=== PATIENT | female | born 1995 | race Caucasian/White ===

== ENCOUNTER → 2017-03-30 | Day surgery (SDC) | payer OTHER ==
[2017-03-30] VITALS (9 sets, daily range): BP systolic 97–114; BP diastolic 49–99; PULSE 68–80; RESP 11–22; O2SAT 98–100
[~2017-03-30] VITALS: Ht 172.1 cm; Wt 92.9 kg
[~2017-03-30] MED LIST: ACET325T51 PO; Bupivacaine-MPF 0.5% 30 mL Inj INFILTRATE ONE; CeFAZolin Inj 2 GM in IV Premix 1 EACH IV ONE; CeFAZolin Inj 2 gm / 50mL D5W IV ONE; Dexamethasone 4 mg/mL Inj ONE; EPHEDrine Sulfate 50 mg/mL Inj IVPUSH PRN; FERR-83 PO; HYDROmorphone 1 mg/mL Inj IVPUSH PRN; Labetalol 5 mg/mL 20 mL Inj IV PRN; Lactated Ringer's 1,000 ML IV ONE; Lactated Ringer's 1,000 ML IV SCH; Lactated Ringer's 500 ML IV PRN; MetoCLOpramide 5 mg/mL 2 mL Inj IVPUSH PRN; NAPR220C11 PO; OXYC5TAB72 PO; Ondansetron 2 mg/mL 2 mL Inj IVPUSH PRN; Ondansetron 2 mg/mL 2 mL Inj ONE; PROP20TA5 PO; Phenylephrine 10,000 mCg/mL Inj IVPUSH PRN; Propofol 10,000 mCg/mL 20 mL Inj ONE; QUET100T PO; TRAZ150T72 PO; fentaNYL-PF 50 mCg/mL 2 mL Inj IVPUSH PRN; fentaNYL-PF 50 mCg/mL 2 mL Inj ONE; oxyCODONE-Acetamin 5-325 mg Tablet PO PRN
--- NOTE | 2017-03-30 13:15 | PCM.HPANE ---
Patient Data Date of Service: Mar 30, 2017 Surgeon Admitting Provider: Attending Provider:Edwige Perez MD Primary Care Physician:Sindhu Davenport PA-C Other Provider:Hitesh Chavez Anesthesia Reason for Visit Left Axillary Lymphadenopathy Ht/WT & BMI Height (Feet): 5 Height (Inches): 7.75 Weight (Kilograms): 92.9 Body Mass Index 31.00 Allergies Coded Allergies: fluoxetine (Verified Allergy, Unknown, suicidal ideation, 03/29/17) sertraline (Verified Allergy, Unknown, made her feel "like a zombie", 03/29) citalopram (Verified Adverse Reaction, Unknown, not effective, 03/29/17) Past Anesthesia History Anesthesia History: Denies:: Abnormal Airway, Anesthesia Reactions, Difficult Intubation, Fam Anesthesia Reaction, Fam Malignant Hypertherm, Malignant Hyperthermia Diabetes History Hx Diabetes?: No MRSA MRSA: No Medications Hypertension Medication: No Reported Medications Ferrous Sulfate 325 Mg [id number] Mg PO DAILY 30 Days Ref 0 03/29/17 Naproxen Sodium (Aleve)220 Mg [id number] Mg PO DAILY PRN For Pain 03/16/17 Acetaminophen 325 Mg [id number] Mg PO Q4H PRN For Fever Ref 0 03/16/17 Propranolol HCl 20 Mg [id number] Mg PO BID 90 Days Ref 0 03/16/17 Trazodone 150 Mg [id number] Mg PO HS Ref 0 03/16/17 Quetiapine Fumarate (Seroquel)100 Mg [id number] Mg PO HS Ref 0 03/16/17 History History of ENT Problems?: Yes HEENT History: Denies:: Abnormal Airway Cataracts Difficult Intubation Dysphagia Glaucoma Hearing Problem (loses hearing with migraines) Sinus Problem Denture Type: None Teeth Condition: Within Normal Limits Hx of Heart Problems?: Yes Cardiovascular History: Denies:: AICD Abdominal Aortic Aneurism Atrial Fibrillation Cardiac Surgery Chest Pain Congestive Heart Failure Edema Heart Murmur Hypertension Irregular Heartbeat Pacemaker Peripheral Vascular Hx of Respiratory Problem?: Yes Respiratory History: Positive for:: Dyspnea Pulmonary Embolism (PE, pleural effusions, thoracentesis 07/2016- off anticoag now) Denies:: Asthma COPD Emphysema Oxygen Administration Tuberculosis Use of C-PAP Machine Hx Neurologic Problems?: Yes Neurological History: Positive for:: Headaches Denies:: CVA Multiple Sclerosis Parkinson's Disease Seizures Hx of GI Problems?: No Hx of Problems?: No Genitourinary History: Denies:: Kidney Stones Urinary Tract Infection Other Pertinent History: right kidney runs "slower" than left- dx as child Female Hx: Denies:: Currently Problems with Breasts? (hx of breast reduction surgery) Skin History: Positive for:: History Skin Disorders? Denies:: Pressure Ulcers Hx Musculoskeletal Problems?: Yes Musculoskeletal History: Positive for:: Back Injury Musculoskeletal Trauma (back, hip and knee pain) Rheumatoid Arthritis Denies:: Fibromyalgia Joint Replacement Myasthenia Gravis Osteoarthritis Hx of Psycho/Social Problems?: Yes Psycho Social History: Positive for:: Anxiety Bipolar Disorder Hx Depression Hx Surgeries?: Yes (chest drainage tube(2016), bx (2015), appenectomy(2011)) Hx Any Other Health Problems?: Yes Other History: Denies:: Cancer Thyroid Disease History Blood Transfusions: Positive for:: Accept Blood Products? Denies:: Blood Transfusions Hx Diabetes: No Hx Alcohol Use: YesAlcoholic Drinks Per Day: one to two drinks monthlyHx Substance Use: Yes (marijuana- inhale daily) Smoking Status: Current Every Day Smoker Have You Smoked inLast 12 mo: Yes (quit Aug 2016- half pack ) Stop/Bang P-Blood Pressure: treated: No B- Body Mass Index > 35 kg/m2: No A- Age over 50: No N- Neck Large Circumference: No G- Gender Male: No Risk Assessment Category Category 1A: Patient has history of documented sleep apnea, and HAS NOT received any narcotic, sedative or anesthesia administration during this stay. Category 1B: Patient has history of documented sleep apnea, and HAS received any narcotic , sedative or anesthesia administration during this stay Category 2: Patient has SUSPECTED Obstructive Sleep Apnea, and HAS received any narcotic , sedative or anesthesia administration during this stay. Category 3: Patient has SUSPECTED Obstructive Sleep Apnea and HAS NOT received narcotic, sedative or anesthesia administration during this stay. Category 4: Outpatient in Procedural Areas with known sleep apnea or who screen positive for High Risk via the STOP/BANG questionnaire. Exam Exam Vital Signs Vital Signs Date Time Temp Pulse Resp B/P Pulse Ox O2 Delivery O2 Flow Rate FiO2 03/30/17 12:03 36.2 76 17 114/70 99 Room Air General Appearance: Alert, Oriented X3, Cooperative HEENT/AIRWAY: MP 2 Lungs: Clear to Auscultation Heart: Regular Rate/Rhythm Meds/Labs/Diagnostics Admission Meds Current Medications Lactated Ringer's (Lr) 1,000 ml @ ud STK-MED ONCE IV Last administered on 03/30t 11:54; Start 03/30/17 at 11:54; Stop 03/30/17 at 11:55; Status DC Plan Impression Patient chart reviewed, patient interviewed and anesthestic plan with risks, benefits, and alternatives discussed, and informed consent obtained. ASA Physical Status: ASA2 Mod Systemic Disease Anesthetic Plan: GA Bene/Risks/Altern/Consents: Yes HP Complete Prior to Induction: Yes Ihsan Jeff MD Mar 30, 2017 12:08
--- NOTE | 2017-03-30 14:23 | PCM.SURGOP ---
Surgical Operative Report Date of Service: Mar 30, 2017 Pre Operative Diagnosis Widespread lymphadenopathy of unknown etiology Post Operative Diagnosis Widespread lymphadenopathy of unknown etiology Procedure: Excision of left axillary lymph node Surgeon and Contracts Law Professor: Surgeon: Edwige Perez MD Assistants: William Hall MD R3; Leigh Ann Klein MS3 Indication for Procedure This is a 22-year-old female with a complex past medical history. In July 2016, 8 months ago, she was hospitalized at an outside institution for pulmonary embolism; she was discharged and then had a pleural effusion which required thoracentesis. CT scans demonstrated widespread lymphadenopathy in the neck, chest, and pelvis. At that time, an axillary lymph node was removed and was enlarged but pathologically and cytologically was normal. She also has had night sweats and fatigue. Since that time, she has been undergoing an outpatient workup to explain her signs and symptoms. Therefore, her providers requested consideration of repeat lymph node biopsy. Findings: Significant left axillary lymphadenopathy, with the specimen measuring 7 x 4 x 2 cm in size. Procedure Details The patient was brought to the operating room and placed in supine position. General anesthesia was induced. A warming blanket and SCDs were placed. The operative field was prepped and draped in sterile fashion. A preprocedural timeout was performed to confirm the correct patient, procedure, site, and side. The left axilla was palpated and an abnormal lymph node was identified. Local anesthetic was injected into the skin. A 3 cm incision was made in skin lines from superomedial to inferolateral. Subcutaneous tissues were divided with electrocautery. The axillary fascia was divided. The enlarged lymph node was grasped and lifted out of the incision. The surrounding tissue was divided with cautery and blood vessels and lymphatics supplying the lymph node were clipped. The specimen was removed and measured. The axillary fascia was closed with interrupted 3-0 Vicryl stitches. Skin was closed with 4-0 Monocryl. A sterile dressing was placed. The patient was awakened from general anesthesia and tolerated the procedure well. Complications There were no periprocedural complications identified. Surgical Specimen Removed: Yes Specimen sent to Pathology: Yes Surgical Specimen description: Left axillary lymph node, which was sent for permanent pathology and cytology. Anesthetic Plan: GA Grafts, Implants: None Output, Estimated Blood Loss: 1 (ml) Blood Administration during wagner: No copies to: Sindhu Davenport PA-C, Allison J MD Mar 30, 2017 14:23
--- NOTE | 2017-03-30 15:22 | PCM.ANEP1 ---
Post Anesthesia PACU Phase 1 Assessment Date of Service: Mar 30, 2017 Vital Signs Vital Signs Date Time Temp Pulse Resp B/P Pulse Ox O2 Delivery O2 Flow Rate FiO2 03/30/17 15:15 71 13 107/64 99 Room Air 03/30/17 15:00 80 11 111/67 100 Room Air 03/30/17 14:45 37.1 75 16 109/60 99 Room Air 03/30/17 14:40 72 15 105/68 100 Simple Mask 8 03/30/17 14:35 74 15 105/62 99 Simple Mask 8 03/30/17 14:30 68 20 99/99 100 Simple Mask 8 03/30/17 14:27 37.0 69 22 97/49 100 Simple Mask 8 03/30/17 12:03 36.2 76 17 114/70 99 Room Air Anesthetic Administered: GA Level of Alertness: Sleepy, easy to arouse OCONNOR's with Equal Strength: Yes Pain: Yes Nausea or Vomiting: No CV Function & Hydration Stable: Yes Airway Device: Oralpharangeal Airway Oxygen Delivery: Simple Mask Lungs: Normal Air Movement PACU Phase 2 Assessment Patient Instructions Provided: N/A Ihsan Jeff MD Mar 30, 2017 15:22
--- NOTE | 2017-03-30 16:08 | PCM.DISURG ---
Surgical Discharge Instruction Date of Service Mar 30, 2017 Dates of Hospitalization Date of Hospital Admission Providers Admitting Physician: Primary Care Physician: Sindhu Davenport PA-C Attending Physician: Edwige Perez MD Discharge Diagnosis Post Operative diagnosis Widespread lymphadenopathy of unknown etiology Diet Discharge Diet: No restrictions Activity Discharge Activity-General: Be up and about, Activity as pain allows, No lifting >15 pounds for 2 weeks, No driving while taking narcotic Dressing and Incisional Care Dressing Instructions: Liquid skin glue will peel off on its own starting in 7- 10 days Hygiene: May shower after (24 hours), DO NOT soak incision under water, NO bathtub, hot tub or whirlpool Follow Up Plan Follow Up Plan Follow up as needed in the general surgery clinic. Call at any time with questions or concerns. We will call you with your pathology results. Call your provider for: Fever, Chills, Wound redness, Discharge @ incision, pus discharge Juan A Hall MD Mar 30, 2017 16:08
--- NOTE | 2017-04-04 11:28 | PATH ---
SURGICAL PATHOLOGY Attending Physician:Edwige Perez MD CASE STATUS: Signed Out PATIENT NAME: ROSY REED PID: [id number] : 1995 DATE COLLECTED:03/30/2017 00:00 SPECIMEN: Lymph Node, Biopsy CLINICAL HISTORY: LYMPHADENOPATHY 1). LEFT AXILLARY LYMPH NODE FINAL DIAGNOSIS: Left Axillary Lymph Node, Excisional Biopsy: Enlarged lymph node with follicular hyperplasia; please see comment. Negative for lymphoma. ICD10: R59.1 NOTE: The morphologic and immunohistochemical findings are most consistent with a benign follicular hyperplasia. The alternative diagnostic possibility would be a follicular lymphoma, but in this case, there would be overexpression of BCL2 within the follicles, which is not observed. Follicular lymphoma would be very unusual in a patient of this age. The corresponding flow cytometric analysis showed a minute population of lambda-restricted B cells that comprised only about 1% of the total lymphocytes. This was favored to represent a clonal expansion within a background of a dominant polyclonal B-cell population. In view of the morphologic and immunohistochemical findings, this favored possibility is confirmed. There is no morphologic or immunohistochemical evidence of an abnormal B-cell population within the lymph node consistent with a benign lymphoid hyperplasia. Follicular hyperplasia of this degree suggests an enhanced immune stimulation. Correlation with the patient' s clinical history and laboratory findings is required for a further explanation. 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 Flow Comment: Flow cytometry performed on cells disaggregated from the left axillary lymph node shows that 100% of the recovered viable cells are lymphocytes which based upon the forward light scatter profile are predominantly small to intermediate in size. Lymphocytes consist of 54% mature T cells and 42% mature B cells. T cells exhibit a CD4/CD8 ratio of 2.8 , and both the CD4 and CD8 subsets appropriately express the saunders-T antigens CD2, CD3 and CD5. When analyzed as one population, the B cells have a polyclonal light chain distribution with a kappa/lambda ratio of 2.3. On further detailed gating of B-cell subpopulations, there is a very small population of B cells amounting to about 2.4% of the total B cells with brighter CD20 and dim CD10 which have a lambda-restricted light chain pattern. This subpopulation of B cells does not appear as a distinct population but appears to merge with the polyclonal background pattern. At the level identified and in the absence of a discrete population, it is favored that this represents clonal expansion of a B-cell subpopulation rather than representing a clinically significant monoclonal population. However, it is imperative to correlate this finding with the lymph node histology and immunohistochemistry to determine the significance of this finding. Correlation with the lymph morphology is also essential in order to exclude the possibility of Hodgkin lymphoma as this flow cytometric assay cannot detect Hodgkin lymphoma or a nonhematopoietic malignancy. GROSS DESCRIPTION: The specimen is received in formalin, labeled with the patient's name, sublabeled as left axillary lymph node, and consists of a lymph node (4.5 x 2.3 x 1.5 cm) with attached adipose tissue (up to 2.8 cm thick). Section code: (A-I) lymph node, serially sectioned, entirely submitted. 04/01/17 MICRO DESCRIPTION: Sections of the enlarged lymph node show an intact lymph node with a preserved architecture. There is a follicular proliferation in which the follicles have morphologic features most consistent with reactive germinal centers. The follicles are widely spaced with the interfollicular zones populated by small mature lymphocytes distributed amongst small blood vessels and patent sinusoids. There are no areas of suppurative inflammation, and granulomas are not identified. No Dano-Hai cells or other histologic alterations that would support Hodgkin lymphoma are identified. To further evaluate the nature of the follicular proliferation, immunohistochemistry is performed with the following results: IMMUNOHISTOCHEMISTRY STAINRESULT [id number] in small lymphocytes within the interfollicular zones; few positive cells within germinal centers. [id number] positive within germinal centers. [id number] positive in germinal centers and in mantle zones surrounding the germinal centers. [id number] staining of the germinal center follicular dendritic meshworks. [id number] for overexpression in lymphoid follicles. ICD-9 CODES: CPT CODES: 1: 90360, 09928, 95617, 49311, 57319, 55019 Electronically Signed Out Александр Lua MD, PhD [facility] [address], [place] [address] Technical component performed at [facility], [address], [place], [address]
== END | disposition home or self-care (01) ==
LOC: SAS 11:12
PROVIDERS: ATTEND Surgery
DX: R59.1 Generalized enlarged lymph nodes (principal); R63.4 Abnormal weight loss; Z86.711 Personal history of pulmonary embolism; F41.9 Anxiety disorder, unspecified; F32.9 Major depressive disorder, single episode, unspecified; G43.909 Migraine, unspecified, not intractable, without status migrainosus; F12.90 Cannabis use, unspecified, uncomplicated; Z87.891 Personal history of nicotine dependence
CPT/HCPCS: 38525; J0690; J1100; J2250; J2405; J2704; J2765; J3010; J7120